=== PATIENT | male | born 1960 | race Caucasian/White ===

== ENCOUNTER 2016-10-26 | Emergency (ER) | payer OTHER | END 2016-10-26 10:50 | disposition left against medical advice (07) | DX: Z53.21 Procedure and treatment not carried out due to patient leaving prior to being seen by health care provider (principal) ==

== ENCOUNTER 2017-03-10 12:53 | Outpatient (CLI) | payer OTHER ==
--- NOTE | 2017-03-10 14:22 | Ultrasound Report ---
LIMITED ABDOMINAL ULTRASOUND: 03/10/2017 CLINICAL INDICATION: Hernia. TECHNIQUE: Real-time scanning was performed with retail sales representative static images obtained. FINDINGS: Ultrasound of the anterior abdominal wall was performed. A small hernia is seen approximat tisha 4 cm above the umbilicus in the midline, with a neck measuring 10 mm. No recurrent hernia is seen in the previous hernia repair incision in the left upper quadrant, and no hernia is identified at th e site of pain identified by the patient in the left subcostal region. IMPRESSION: AN 1 CM MIDLINE ANTERIOR ABDOMINAL WALL HERNIA, CONTAINING FAT, APPROXIMATELY 4 CM SUPER IOR TO THE UMBILICUS. NO EVIDENT RECURRENT HERNIA AT THE SITE OF PREVIOUS HERNIA REPAIR, AND NO HERNI A IS IDENTIFIED AT THE SITE OF PAIN IDENTIFIED BY THE PATIENT IN THE LEFT UPPER QUADRANT. JOB #: [id number] EXT JOB #:
== END 2017-03-10 12:54 | disposition home or self-care (01) ==
LOC: DI 12:53
PROVIDERS: ATTEND Nurse Practitioner Family
DX: K43.9 Ventral hernia without obstruction or gangrene (principal)
CPT/HCPCS: 76705

== ENCOUNTER 2017-05-12 10:36 | Outpatient (CLI) | payer OTHER ==
--- NOTE | 2017-05-13 08:46 | Ultrasound Report ---
LEFT LOWER EXTREMITY VENOUS ULTRASOUND: 05/12/2017 CLINICAL HISTORY: Patient had left lower extremity pain. TECHNIQUE: Examination was done with a [employer] color Doppler scanning system using high-frequency tr ansducers. FINDINGS: Left lower extremity venous ultrasound demonstrates normal compressibility and phasic colo r flow in all the veins visualized including left common femoral vein, profunda femoral vein, superfi cial femoral vein, popliteal vein, and calf veins. Also, right common femoral vein showed normal com pressibility and phasic color flow. The calf veins in the peroneal and posterior tibial venae comita ntes were more dilated than usually noted. This may indicate deep vein varicosities. IMPRESSION: 1. EXAMINATION IS NEGATIVE FOR DEEP VEIN THROMBOSIS. 2. THE LEFT POSTERIOR TIBIAL AND PERONEAL VENAE COMITANTES ARE MORE DILATED THAN USUALLY NOTED. THI S SUGGESTS DEEP VEIN VARICOSITIES. JOB #: [id number] EXT JOB #:[id number]
== END 2017-05-12 10:37 | disposition home or self-care (01) ==
LOC: DI 10:36
PROVIDERS: ATTEND Nurse Practitioner Family
DX: M79.605 Pain in left leg (principal); R60.0 Localized edema

== ENCOUNTER 2017-12-07 08:00 | Outpatient (CLI) | payer OTHER | END 2017-12-07 08:01 | disposition home or self-care (01) | LOC: LAB.R 08:00 → LAB.F 08:01 | PROVIDERS: ATTEND Nurse Practitioner Family | DX: M79.652 Pain in left thigh (principal) | CPT/HCPCS: 36415; 85379 ==

== ENCOUNTER 2017-12-09 13:50 | Outpatient (CLI) | payer OTHER ==
--- NOTE | 2017-12-09 16:22 | Ultrasound Report ---
BILATERAL LOWER EXTREMITY VENOUS DUPLEX: 12/09/2017 CLINICAL INDICATION: Left thigh pain, positive D-dimer. COMPARISON: 05/12/2017. TECHNIQUE: Real-time sonographic vascular imaging was performed by the television program director through the bilateral lower extremities utilizing both color flow and Doppler spectral analysis. Multiple claim service representative static images were saved for review. FINDINGS: A bilateral lower extremity venous sonogram is performed revealing the common femoral, superficial femoral, profunda femoris, and popliteal veins to be adequately visualized without intraluminal defects. There is normal venous compression, augmentation, phasicity, and spontaneity of venous flow. In the calf, the visualized more cephalad portions of posterior tibial and peroneal veins are grossly compressible, without filling defects. IMPRESSION: NO EVIDENCE OF DEEP VENOUS THROMBOSIS. TD: 12/09/2017 16:21
== END 2017-12-09 13:51 | disposition home or self-care (01) ==
LOC: DI 13:50
PROVIDERS: ATTEND Nurse Practitioner Family
DX: M79.652 Pain in left thigh (principal)
CPT/HCPCS: 93970

== ENCOUNTER 2017-12-26 15:42 | Outpatient (CLI) | payer OTHER ==
--- NOTE | 2017-12-26 17:48 | MRI Report ---
EXAM: MRI CERVICAL SPINE WITHOUT CONTRAST EXAM DATE: 12/26/2017 04:22 PM. CLINICAL HISTORY: NECK PAIN. COMPARISONS: None. TECHNIQUE: Multiplanar, multisequence T1-weighted and fluid-sensitive sequences of the cervical spine without contrast. Other: None. FINDINGS: Neurologic Structures: The visualized posterior fossa structures are unremarkable. No signal abnormal ity in the visualized spinal cord. Alignment: Grade 1 anterolisthesis at C4-C5 by approximately 2 mm. Grade 1 retrolisthesis of C5-C6 by approximately 1.5 mm. Grade 1 anterolisthesis at C6-C7 by approximately 1.5 mm. Bone Marrow: No gross fractures or bone lesions. Marrow edema at the left C3-C4, left C4-C5, and righ t C5-C6 facet joints which is most likely degenerative. Interspace Levels/Facets: The craniocervical junction is unremarkable. C1-C2: Unremarkable. C2-C3: There is bony fusion of the facet joints. No stenoses. C3-C4: Moderate to severe left and mild right facet arthropathy. Bilateral uncovertebral joint osteop hytes. Severe left and mild right foraminal stenoses. C4-C5: Small disk bulge. Bilateral uncovertebral joint osteophytes. Ttju-vq-aaboivbd right and severe left facet arthropathy. Mild canal stenosis. Severe foraminal stenoses. C5-C6: Moderate to severe disk space narrowing. Marrow edema within most of the C5 vertebral body and the superior half of the C6 vertebral body. Small disk bulge/osteophyte complex and bilateral uncove rtebral joint osteophytes. Mild left and moderate right facet arthropathy. Mild to moderate canal shad nosis. No cord impingement. Severe left and right foraminal stenoses. C6-C7: Small disk bulge. Right-sided uncovertebral joint osteophytes. Moderate left and severe right facet arthropathy. Mild canal stenosis. Moderate foraminal stenoses. C7-T1: Bony fusion of the facet joints. No stenoses. Musculature: Normal. No edema or fatty atrophy. Other: The paravertebral and prevertebral soft tissues are normal. IMPRESSION: 1. Grade 1 anterolisthesis at C4-C5 and C6-C7. Grade 1 retrolisthesis at C5-C6. 2. Multilevel degenerative disk changes, osteophytosis, and facet arthropathy. Some of the more signi ficant levels are at C3-C4, C4-C5, C5-C6. 3. Severe left and moderate right foraminal stenoses at C3-C4. 4. Small disk bulge at C4-C5. Mild canal and severe foraminal stenoses. 5. Small disk bulge/osteophyte complex at C5-C6. Jowl-sp-dzvhimri canal stenosis. Severe foraminal st enoses. 6. Small disk bulge at C6-C7. Mild canal and moderate foraminal stenoses. 7. Bony fusion (ankylosis) at the C2-C3 and C7-T1 facet joints which may be degenerative or inflammat ory in etiology. [facility] Referring Provider Line: [phone] SITE ID: [id number]
--- NOTE | 2017-12-27 03:57 | MRI Report ---
EXAM: MRI LUMBAR SPINE WITHOUT CONTRAST EXAM DATE: 12/26/2017 04:45 PM. CLINICAL HISTORY: Back pain, urinary incontinence. History of prior surgery at L4-L5. COMPARISON: Lumbar spine MRI from 07/16/[address] of the abdomen and pelvis from 07/20/2013. TECHNIQUE: Multiplanar, multisequence T1-weighted and fluid-sensitive sequences of the lumbar spine f rom T12 to S1 without contrast. Other: None. FINDINGS: Spinal Cord: The conus terminates at T12-L1. The conus medullaris and cauda equina are unremarkable. Alignment: Retrolisthesis of L2-L3, L3-L4, and L4-L5 is stable. Bone Marrow: Five paf-nyh-mvxxbuc lumbar vertebral bodies are confirmed on the CT. Mild type I Modic endplate changes are again noted anteriorly at L2-L3. There are new mild type I Modic endplate change s anteriorly at L1-L2, L3-L4, and L5-S1. Disk Levels/Facets: T12-L1: On sagittal images, a right paracentral protrusion is noted without significant spinal canal or foraminal stenosis. These findings are stable. L1-L2: On sagittal images, the spinal canal and foramina are patent. L2-L3: A mild disk bulge is present without spinal canal or foraminal stenosis. These findings are st able. L3-L4: A disk bulge with facet arthropathy and ligamentum flavum infolding result in mild spinal chela l stenosis. There is mild bilateral foraminal narrowing. These findings are stable. L4-L5: Old left laminectomy changes are demonstrated. There is a persistent disk bulge with a superim posed central protrusion and annular fissure. This results in mild spinal canal stenosis with narrowi ng of the lateral recesses without definite impingement of the descending L5 nerve root. There is mil d bilateral foraminal narrowing. These findings are stable. L5-S1: A disk bulge with bilateral facet arthropathy results in mild bilateral foraminal narrowing wi thout spinal canal stenosis. These findings are stable. Musculature: There is mild diffuse fatty atrophy of the posterior paraspinal muscles without intramus cular edema. Other: The partially visualized retroperitoneum is unremarkable. IMPRESSION: 1. Normal conus medullaris and cauda equina. 2. Similar appearance of multilevel degenerative changes without evidence of worsening spinal canal o r foraminal stenosis compared to the lumbar spine MRI from 07/16/2011. 3. New mild type I Modic endplate changes are present anteriorly at L1-L2, L3-L4, and L5-S1. Comment: The following findings are so common in adults without low back pain that while we report th eir presence, they must be interpreted with caution and in the context of the clinical situation. (Re honey Cifuentes et al, Spine 2001) Prevalence of findings in patients without low back pain: Disk degeneration (any evidence): 92% Disk desiccation/T2 signal loss: 83% Disk height loss: 56% Disk bulge: 64% Disk protrusion: 32% Annular tear/high intensity zone: 38% [facility] Referring Provider Line: [phone] SITE ID: [id number]
== END 2017-12-26 15:43 | disposition home or self-care (01) ==
LOC: DI 15:42
PROVIDERS: ATTEND Acupuncturist
DX: M50.31 Other cervical disc degeneration, high cervical region (principal); M47.892 Other spondylosis, cervical region; M43.12 Spondylolisthesis, cervical region; M43.22 Fusion of spine, cervical region; M51.36 Other intervertebral disc degeneration, lumbar region; M47.896 Other spondylosis, lumbar region
CPT/HCPCS: 72141; 72148

== ENCOUNTER 2018-05-23 16:10 | Outpatient (CLI) | payer OTHER ==
--- NOTE | 2018-05-24 10:56 | XRAY Report ---
Procedure Date: 05/23/2018 Accession Number: [id number] / [id number] Procedure: XRS - Wrist 4 View LT CPT Code: FULL RESULT: EXAM: Wrist 4 View LT, Hand 3 View LT DATE: 05/23/2018 4:28 PM CLINICAL HISTORY: PAIN IN LEFT HAND COMPARISON: None. TECHNIQUE: 3 views of the left hand and 4 views of the left wrist. FINDINGS: Left hand: Bones: Normal. No fractures or bone lesions. Joints: Normal. No subluxations. Soft Tissues: There is a 4 mm long thin radiopaque foreign body in the medial soft tissues of the second finger, level of middle phalanx. Left wrist: No fracture or dislocation. Mild degenerative changes about the first carpometacarpal joint. IMPRESSION: Foreign body in the left index finger as described. No fracture or dislocation. [facility]
--- NOTE | 2018-05-24 10:56 | XRAY Report ---
Procedure Date: 05/23/2018 Accession Number: [id number] / [id number] Procedure: XRS - Hand 3 View LT CPT Code: FULL RESULT: EXAM: Wrist 4 View LT, Hand 3 View LT DATE: 05/23/2018 4:28 PM CLINICAL HISTORY: PAIN IN LEFT HAND COMPARISON: None. TECHNIQUE: 3 views of the left hand and 4 views of the left wrist. FINDINGS: Left hand: Bones: Normal. No fractures or bone lesions. Joints: Normal. No subluxations. Soft Tissues: There is a 4 mm long thin radiopaque foreign body in the medial soft tissues of the second finger, level of middle phalanx. Left wrist: No fracture or dislocation. Mild degenerative changes about the first carpometacarpal joint. IMPRESSION: Foreign body in the left index finger as described. No fracture or dislocation. [facility]
== END 2018-05-23 16:11 | disposition home or self-care (01) ==
LOC: DI.S 16:10
PROVIDERS: ATTEND Nurse Practitioner Family
DX: M79.5 Residual foreign body in soft tissue (principal)

== ENCOUNTER 2018-10-30 08:00 | Outpatient (CLI) | payer OTHER ==
[2018-10-30 19:00] LABS: BASOPHILS % (AUTO) 0.4 %; EOSINOPHILS % (AUTO) 0.3 %; HGB - HEMOGLOBIN 16.1 g/dL (14.0-18.0); LYMPHOCYTES # (AUTO) 1.7 10^3/uL (1.5-3.5); LYMPHOCYTES % (AUTO) 15.6 %; MEAN CORPUSCULAR HEMOGLOBIN 30.4 pg (27.0-31.0); MEAN CORPUSCULAR HGB CONC 32.4 g/dL (32.0-36.0); MEAN CORPUSCULAR VOLUME 93.8 fL (80.0-94.0); MEAN PLATELET VOLUME 10.8 fL (7.4-11.4); MONOCYTES # (AUTO) 0.8 10^3/uL (0.0-1.0); MONOCYTES % (AUTO) 6.8 %; NEUTROPHILS # (AUTO) 8.6 10^3/uL (1.5-6.6); NEUTROPHILS % (AUTO) 76.9 %; PLT - PLATELET COUNT 310 10^3/uL (130-450); WHITE BLOOD COUNT 11.1 x10^3/uL (4.8-10.8)
[2018-10-30 19:20] LABS: ALBUMIN 4.4 g/dL (3.2-5.5); ALBUMIN/GLOBULIN RATIO 1.6 (1.0-2.2); ALKALINE PHOSPHATASE 64 IU/L (42-121); ALT ALANINE AMINOTRANSFERASE 14 IU/L (10-60); AST ASPARTATE AMINOTRANSFERASE 15 IU/L (10-42); BUN - BLOOD UREA NITROGEN 8 mg/dL (6-20); CALCIUM 9.4 mg/dL (8.5-10.3); CARBON DIOXIDE - CO2 27 mmol/L (21-32); CHLORIDE 107 mmol/L (101-111); CHOL/HDL RATIO 3.9 (<5.0); CHOLESTEROL 184 mg/dL; CREATININE 0.9 mg/dL (0.6-1.2); GFR - MDRD 87 (>89); GLUCOSE 140 mg/dL (70-100); HDL CHOLESTEROL 47 mg/dL; LDL CHOLESTEROL,CALCULATED 122 mg/dL; LDL/HDL RATIO 2.6 (<3.6); SODIUM 142 mmol/L (135-145); TOTAL PROTEIN 7.2 g/dL (6.7-8.2); VLDL CHOLESTEROL 15 mg/dL
[2018-10-30 20:13] LABS: DIFFERENTIAL COMMENT MANUAL=AUTO DIFF; PLATELET ESTIMATE, MANUAL NORMAL (130-450,000) (NORMAL); PLATELET MORPHOLOGY NORMAL APPEARANCE (NORMAL); RBC MORPHOLOGY (MULTIPLE) NORMAL APPEARANCE (NORMAL)
== END 2018-10-30 23:59 | disposition home or self-care (01) ==
LOC: LAB.S 08:00
PROVIDERS: ATTEND Nurse Practitioner Family
DX: I10 Essential (primary) hypertension (principal); Z13.220 Encounter for screening for lipoid disorders; Z12.5 Encounter for screening for malignant neoplasm of prostate
CPT/HCPCS: 36415; 80053; 80061; 83721; 84153; 84443; 85025

== ENCOUNTER 2019-05-25 16:54 | Outpatient (CLI) | payer OTHER ==
--- NOTE | 2019-05-29 17:31 | MRI Report ---
Reason: RADICULOPATHY Procedure Date: 05/25/2019 Accession Number: [id number] / [id number] Procedure: MRI - Cervical Spine W/O CPT Code: FULL RESULT: EXAM: MRI CERVICAL SPINE WITHOUT CONTRAST EXAM DATE: 05/25/2019 05:45 PM. CLINICAL HISTORY: Left arm pain and numbness. COMPARISONS: 12/26/2017 cervical spine MRI. TECHNIQUE: Multiplanar, multisequence T1-weighted and fluid-sensitive sequences of the cervical spine without contrast. Other: None. FINDINGS: Neurologic Structures: The visualized posterior fossa structures are unremarkable. No signal abnormality in the visualized spinal cord. Alignment: 1.5 mm anterolisthesis of C4 on C5, unchanged. 1.5 mm anterolisthesis of C6 on C7, also unchanged. Bone Marrow: No fractures. No osseous lesions. There is extensive Modic type I endplate degenerative changes asymmetric to the left surrounding the C3-C4 disk space. Modic type I endplate degenerative changes also surround the C5-C6 disk space. Endplate degenerative changes have progressed from the prior examination. Progressive, now severe left C2-C3 facet arthropathy with extensive surrounding subchondral marrow edema and pericapsular edema. There is also subchondral marrow edema at the left C4-C5 facet and right C5-C6 and C6-C7 facets. Interspace Levels/Facets: C1-C2: Unremarkable. C2-C3: No disk bulge or protrusion. No central canal or foraminal stenosis. Fusion of the right facet. C3-C4: A broad-based disk-osteophyte complex asymmetric to the left foraminal region with severe left facet arthropathy results in circumferential effacement of the CSF with slight flattening of the ventral cord and narrowing of the canal to 7 mm in AP diameter. There is severe left foraminal stenosis. Mild right foraminal stenosis. Findings have progressed from the prior exam. C4-C5: Shallow broad-based disk osteophyte complex effaces the ventral CSF without deforming the cord. Severe left and mild right facet arthropathy. Severe bilateral foraminal stenosis is unchanged. C5-C6: Moderate intervertebral disk height loss. Broad-based disk osteophyte complex and moderate right facet arthropathy results in effacement of the ventral CSF and flattening of the cord, as well as severe bilateral foraminal stenosis. C6-C7: Shallow broad-based disk bulge partially effaces the ventral CSF without deforming the cord. Severe right and moderate left facet arthropathy. Moderate bilateral foraminal stenosis. Unchanged. C7-T1: Unremarkable. Musculature: Normal. No edema or fatty atrophy. Other: The paravertebral and prevertebral soft tissues are normal. IMPRESSION: 1. At C3-C4, a progressive broad-based disk osteophyte complex asymmetric to the left foraminal region with severe left facet arthropathy now results in moderate central canal and severe left foraminal stenosis. 2. At C2-C3, there is new extensive subchondral marrow edema and pericapsular edema surrounding the left facet. 3. At C4-C5 and C5-C6, broad-based disk osteophyte complexes with bilateral facet arthropathy results in mild-moderate central canal stenosis and severe bilateral foraminal stenosis, unchanged. 4. C6-C7, mild central canal and moderate bilateral foraminal stenosis secondary to a shallow broad-based disk bulge and moderate to severe facet arthropathy is unchanged. 5. Progressive degenerative endplate edema surrounding the C3-C4 and C5-C6 disk spaces. There is also subchondral marrow edema surrounding the left C2-C3 and C4-C5 and right C5-C6 and C6-C7 facets. [facility]
== END 2019-05-25 16:55 | disposition home or self-care (01) ==
LOC: DI 16:54
PROVIDERS: ATTEND Acupuncturist
DX: M54.12 Radiculopathy, cervical region (principal); M50.31 Other cervical disc degeneration, high cervical region; M48.02 Spinal stenosis, cervical region; M47.812 Spondylosis without myelopathy or radiculopathy, cervical region; R60.0 Localized edema
CPT/HCPCS: 72141

== ENCOUNTER 2019-11-28 17:02 | Outpatient (CLI) | payer OTHER ==
[2019-11-28] MEDS ORDERED: GADOBUTROL 10 MMOL/10 ML VIAL ONE (17:14)
[2019-11-28] MEDS ORDERED: GADOBUTROL 10 MMOL/10 ML VIAL IVP ONE (17:45)
--- NOTE | 2019-11-29 02:08 | MRI Report ---
Reason: RADICULOPATHY LUMBOSACRAL REGION Procedure Date: 11/28/2019 Accession Number: [id number] / [id number] Procedure: MRI - Lumbar Spine W/WO CPT Code: Final Report FULL RESULT: EXAM: MRI LUMBAR SPINE WITHOUT AND WITH CONTRAST EXAM DATE: 11/28/2019 05:45 PM. CLINICAL HISTORY: RADICULOPATHY LUMBOSACRAL REGION. COMPARISONS: LUMBAR SPINE W/O 12/26/2017 4:25 PM. TECHNIQUE: Multiplanar, multisequence T1-weighted and fluid-sensitive sequences of the lumbar spine from T12 to S1 before and after administration of intravenous contrast. Other: None. IV contrast: GADAVIST 8 mL. FINDINGS: Neurologic Structures: The conus terminates at T12-L1. The conus medullaris and cauda equina are unremarkable. Alignment: Slight 2-3 mm degenerative retrolisthesis at L3-L4 and L4-L5 and slight anterolisthesis at L5-S1 is unchanged. Bone Marrow: Five nwg-rul-gmgdoah lumbar vertebral bodies are assumed. No gross fractures or bone lesions. No bone marrow replacement or abnormal enhancement. Disk Levels/Facets: T12-L1: Mild disk narrowing and desiccation present in a small 1-2 mm right paracentral disk protrusion is unchanged. No evidence of nerve root compression. No canal or foraminal stenosis. L1-L2: Mild disk narrowing and desiccation. There is a minimal disk bulge. No canal or foraminal stenosis. No change. L2-L3: There is mild anterior spurring and mild to moderate disk narrowing and desiccation. There is mild disk bulge and bilateral facet hypertrophy. No significant canal or foraminal stenosis. No change. L3-L4: There is mild anterior endplate spurring and mild to moderate disk narrowing and desiccation. There is a generalized disk bulge and bilateral facet hypertrophy with ligamentum flavum thickening. This results in mild central canal and bilateral foraminal narrowing. No significant change compared to previous MRI. L4-L5: Left-sided laminectomy defect is again demonstrated. There is mild to moderate disk narrowing desiccation. There is a mild disk bulge with a superimposed broad-based central disk protrusion effacing the ventral thecal sac. There is mild bilateral facet hypertrophy and right ligamentum flavum thickening. This results in mild central canal and bilateral subarticular recess narrowing. The neural foramen are also mildly narrowed bilaterally. No definite nerve root impingement. Findings at this level appear stable compared to 12/26/2017. L5-S1: There is a slight anterolisthesis. There is a mild disk bulge with superimposed 4 mm left foraminal disk protrusion. This narrows the left neural foramen and abuts the exiting left L5 nerve root (sagittal image 3, series 301). This finding is new compared to the previous MRI. Correlate with left L5 radiculopathy. No significant central canal stenosis. Right neural foramen appears adequate. Facet joints are mildly hypertrophied. Spinal Canal: No enhancing masses within the spinal canal. No epidural abscess. Musculature: Normal. No edema, abnormal enhancement, or fatty atrophy. Other: The visualized retroperitoneum is unremarkable. IMPRESSION: 1. At the L5-S1 level, a 4 mm left foraminal disk protrusion narrows the neural foramen and abuts the exiting left L5 nerve root. This finding is new compared to 12/26/2017. Please correlate with possible left L5 radiculopathy. There is no significant central canal or right foraminal stenosis. 2. The remaining lumbar levels appear unchanged compared to previous MRI on 12/26/2017. 3. At L4-L5, there is a left-sided laminectomy defect. There is a disk bulge with superimposed broad-based central disk protrusion effacing the ventral thecal sac. This results in mild central canal narrowing and mild bilateral subarticular recess and neural foramen narrowing. No definite nerve root compression. Findings at this level appear stable. 4. At L3-L4, mild spondylosis and disk bulging results in mild central canal and bilateral foraminal narrowing. No evidence of nerve root impingement. 5. Multilevel degenerative change is associated with a slight retrolisthesis at L3-L4 and L4-L5 and slight anterolisthesis at L5-S1. This is unchanged compared to the previous MRI. Comment: The following findings are so common in adults without low back pain that while we report their presence, they must be interpreted with caution and in the context of the clinical situation. (Reference Lulak et al, Spine 2001) Prevalence of findings in patients without low back pain: Disk degeneration (any evidence): 92% Disk desiccation/T2 signal loss: 83% Disk height loss: 56% Disk bulge: 64% Disk protrusion: 32% Annular tear/high intensity zone: 38% [facility]
== END 2019-11-28 17:03 | disposition home or self-care (01) ==
LOC: DI 17:02
PROVIDERS: ATTEND Acupuncturist
DX: M51.36 Other intervertebral disc degeneration, lumbar region (principal); M47.816 Spondylosis without myelopathy or radiculopathy, lumbar region; M43.16 Spondylolisthesis, lumbar region
CPT/HCPCS: 36415; 72158; A9585; 82565

== ENCOUNTER 2020-05-13 17:34 | Outpatient (CLI) | payer OTHER ==
--- NOTE | 2020-05-13 18:10 | XRAY Report ---
PROCEDURE: Foot 3 View RT INDICATIONS: RT FOOT PAIN TECHNIQUE: 3 views of the foot were acquired. COMPARISON: None FINDINGS: Bones: No acute fractures or dislocations. No suspicious bony lesions. Severe joint space narrowin g and periarticular osteophyte formation at the first metatarsophalangeal joint. Subchondral lucencie s within the proximal phalanx and first metatarsal head adjacent to the first metatarsophalangeal joanne nt. Deformity of the second metatarsal head. Soft tissues: No tibiotalar joint effusion. Achilles tendon appears normal. IMPRESSION: 1. Severe first metatarsophalangeal joint osteoarthritis. 2. Possible chronic posttraumatic fracture deformity of the second metatarsal head. This could be fur ther assessed with CT, if clinically indicated. Reviewed by: Lisa Ramirez MD on 05/13/2020 5:08 PM [facility] Approved by: Lisa Ramirez MD on 05/13/2020 5:08 PM [facility] Station ID: [id number]
== END 2020-05-13 17:35 | disposition home or self-care (01) ==
LOC: DI.S 17:34
PROVIDERS: ATTEND Podiatrist
DX: M19.071 Primary osteoarthritis, right ankle and foot (principal)

== ENCOUNTER 2020-07-11 17:33 | Outpatient (CLI) | payer OTHER ==
--- NOTE | 2020-07-11 21:21 | CT Report ---
PROCEDURE: LOWER EXTREMITY WO - RT INDICATIONS: PAIN IN 1ST AND 2ND METARSALS - RT FOOT TECHNIQUE: Noncontrast 3 mm axial sections acquired of the right foot, with coronal and sagittal reformats. COMPARISON: Right foot radiographs dated 05/13/2020 FINDINGS: Image quality: Excellent. Bones: There is no acute fracture or dislocation. Severe degenerative changes are seen at the first metatarsophalangeal joint with full-thickness joint space narrowing, subchondral cystic changes, and marginal osteophyte formation. Degenerative changes also seen at the metatarsal sesamoid articulation s. Flattening of the second metatarsal head may be secondary to prior trauma or osteonecrosis with se condary degenerative changes. Mild scattered degenerative changes are seen in the interphalangeal joanne nts of the toes. 2 small os peronei are noted. A small posterior calcaneal spur is present. Soft tissues: No acute soft tissue edema is identified. The articular cartilages, ligaments, and ten dons are not well evaluated with CT. There is mild fatty infiltration of the intrinsic foot musculatu re. IMPRESSION: 1. Severe degenerative changes at the first metatarsophalangeal joint and the metatarsal sesamoid ar ticulations. 2. Chronic flattening of the second metatarsal head may be secondary to prior osteonecrosis or traum a, with secondary degenerative changes. Reviewed by: Uche Myers MD on 07/11/2020 9:19 PM PDT Approved by: Uche Myers MD on 07/11/2020 9:19 PM PDT Station ID: [id number]
== END 2020-07-11 17:34 | disposition home or self-care (01) ==
LOC: DI 17:33
PROVIDERS: ATTEND Podiatrist
DX: M19.071 Primary osteoarthritis, right ankle and foot (principal)

== ENCOUNTER 2020-11-10 07:05 | Outpatient (CLI) | payer OTHER ==
[2020-11-10 15:32] LABS: BASOPHILS % (AUTO) 0.3 %; EOSINOPHILS # (AUTO) 0.1 10^3/uL (0.0-0.7); EOSINOPHILS % (AUTO) 0.9 %; HGB - HEMOGLOBIN 16.4 g/dL (14.0-18.0); LYMPHOCYTES # (AUTO) 1.5 10^3/uL (1.5-3.5); LYMPHOCYTES % (AUTO) 15.6 %; MEAN CORPUSCULAR HEMOGLOBIN 30.5 pg (27.0-31.0); MEAN CORPUSCULAR HGB CONC 33.3 g/dL (32.0-36.0); MEAN CORPUSCULAR VOLUME 91.6 fL (80.0-94.0); MEAN PLATELET VOLUME 11.6 fL (7.4-11.4); MONOCYTES # (AUTO) 0.8 10^3/uL (0.0-1.0); MONOCYTES % (AUTO) 8.3 %; NEUTROPHILS # (AUTO) 7.3 10^3/uL (1.5-6.6); NEUTROPHILS % (AUTO) 74.5 %; PLT - PLATELET COUNT 294 10^3/uL (130-450); RED BLOOD COUNT 5.37 10^6/uL (4.70-6.10); RED CELL DISTRIBUTION WIDTH 14.1 % (12.0-15.0); WHITE BLOOD COUNT 9.8 x10^3/uL (4.8-10.8)
[2020-11-10 16:05] LABS: PSA FREE 0.111 ng/mL (0.16-2.81)
[2020-11-10 16:07] LABS: PSA TOTAL 0.189 ng/mL (0.000-2.000)
[2020-11-10 16:09] LABS: ALBUMIN 4.3 g/dL (3.2-5.5); ALBUMIN/GLOBULIN RATIO 1.4 (1.0-2.2); ALKALINE PHOSPHATASE 60 IU/L (42-121); ALT ALANINE AMINOTRANSFERASE 16 IU/L (10-60); AST ASPARTATE AMINOTRANSFERASE 14 IU/L (10-42); BUN - BLOOD UREA NITROGEN 11 mg/dL (6-20); CALCIUM 9.2 mg/dL (8.5-10.3); CARBON DIOXIDE - CO2 26 mmol/L (21-32); CHLORIDE 107 mmol/L (101-111); CHOL/HDL RATIO 5.8 (<5.0); CHOLESTEROL 286 mg/dL; GLUCOSE 145 mg/dL (70-100); HDL CHOLESTEROL 49 mg/dL; LDL CHOLESTEROL,CALCULATED 211 mg/dL; LDL/HDL RATIO 4.3 (<3.6); SODIUM 139 mmol/L (135-145); TOTAL PROTEIN 7.3 g/dL (6.7-8.2); VLDL CHOLESTEROL 26 mg/dL
== END 2020-11-10 07:06 | disposition home or self-care (01) ==
LOC: LAB.S 07:05
PROVIDERS: ATTEND Registered Nurse
DX: I10 Essential (primary) hypertension (principal); F17.200 Nicotine dependence, unspecified, uncomplicated
CPT/HCPCS: 36415; 80053; 80061; 83721; 84153; 84154; 84443; 85025

== ENCOUNTER 2021-04-13 09:17 | Outpatient (CLI) | payer OTHER ==
--- NOTE | 2021-04-13 10:54 | Ultrasound Report ---
PROCEDURE: Abdomen Limited INDICATIONS: LEFT UPPER QUAD HERNIA TECHNIQUE: Real-time focused scanning was performed of the abdomen, with image documentation. COMPARISON: No recent prior ultrasound or CT scanning.. FINDINGS: Scanning was performed in the area of current clinical concern, left upper quadrant in the area of tenderness and prior incision. No hernia. This found. IMPRESSION: No left upper quadrant hernia found, in the area of pain and prior incision. Reviewed by: Alvaro Martinez MD on 04/13/2021 10:53 AM PDT Approved by: Alvaro Martinez MD on 04/13/2021 10:53 AM PDT Station ID: [id number]
== END 2021-04-13 09:18 | disposition home or self-care (01) ==
LOC: DI 09:17
PROVIDERS: ATTEND Physician Assistant Medical
DX: K43.2 Incisional hernia without obstruction or gangrene (principal)

== ENCOUNTER 2021-05-21 16:49 | Outpatient (CLI) | payer OTHER | END 2021-05-21 16:50 | disposition home or self-care (01) | LOC: COV 16:49 | PROVIDERS: ATTEND Surgery | DX: Z01.812 Encounter for preprocedural laboratory examination (principal); K43.2 Incisional hernia without obstruction or gangrene; Z20.822 Contact with and (suspected) exposure to COVID-19 ==

== ENCOUNTER 2021-05-25 06:11 | Day surgery (SDC) | payer OTHER ==
[2021-05-25] MEDS ORDERED: ceFAZolin 2 GM/50 ML 2 GM/50 ML BAG IV ONE (06:20)
[2021-05-25] MEDS ORDERED: LACTATED RINGERS 1,000 ML IV ONE ×3 (06:22→10:02)
[2021-05-25] MEDS ORDERED: BUPIVACAINE 0.5%-EPI 1:200000 PF 30 ML VIAL ONE (07:16)
[2021-05-25] MEDS ORDERED: LIDOCAINE 1% 50 ML MDV ONE (07:16)
[2021-05-25] MEDS ORDERED: ceFAZolin 1 GM VIAL ONE (07:17)
[2021-05-25] MEDS ORDERED: ATROPINE ABBOJECT 1 MG/10 ML SYRINGE IVP PRN (07:20)
[2021-05-25] MEDS ORDERED: NALOXONE 0.4 MG/ML VIAL IVP PRN (07:20)
[2021-05-25] MEDS ORDERED: MORPHINE 2 MG/ML CARPUJECT IVP PRN (07:20)
[2021-05-25] MEDS ORDERED: HYDROmorphone 0.5 MG/0.5 ML SYRINGE IVP PRN (07:20)
[2021-05-25] MEDS ORDERED: ONDANSETRON 4 MG/2 ML VIAL IVP PRN ×2 (07:20→08:51)
[2021-05-25] MEDS ORDERED: ePHEDrine 50 MG/ML VIAL IVP PRN (07:20)
--- NOTE | 2021-05-25 07:20 | ANESTHESIA ---
Pre-Anesthesia VS, & Labs - Diagnosis recurrent incisional hernia - Procedure incisional hernia repair Vital Signs: Temp Pulse Resp BP Pulse Ox 36.6 C 74 16 127/83 H 96 05/25/21 06:24 05/25/21 06:24 05/25/21 06:24 05/25/21 06:24 05/25/21 06:24 Height: 81 ft Weight (kg): 6 kg Body Mass Index: 0.0 BMI Classification: Underweight - NPO >8 hours - Lab Results Lab results reviewed: Yes Home Medications and Allergies Home Medications: Ambulatory Orders Losartan Potassium 25 mg PO DAILY 05/18/21 Quetiapine Fumarate [Seroquel] 100 mg PO QPM 05/18/21 Rosuvastatin Calcium [Crestor] 40 mg PO QPM 05/18/21 Morphine ER [Morphine Sulfate ER] 15 mg PO TID 03/22/14 oxyCODONE [Roxicodone] 5 mg PO Q4H 03/22/14 Losartan Potassium 25 mg PO DAILY 05/18/21 Quetiapine Fumarate [Seroquel] 100 mg PO QPM 05/18/21 Rosuvastatin Calcium [Crestor] 40 mg PO QPM 05/18/21 Allergies/Adverse Reactions: Allergies Allergy/AdvReac Type Severity Reaction Status Date / Time aspirin Allergy Anaphylaxis Verified 05/18/21 11:30 Anes History & Medical History - Anesthetic History Anesthesia Complications: reports: No previous complications Family history of Anesthesia Complications: Denies Family history of Malignant Hyperthermia: Denies - Medical History Cardiovascular: reports: Hypertension, High cholesterol Pulmonary: reports: None Gastrointestinal: reports: GERD Urinary: reports: None Musculoskeletal: reports: Chronic back pain Endocrine/Autoimmune: reports: None Skin: reports: None Smoking Status: Current every day smoker - Surgical History General: reports: Other Neurologic: reports: Other Orthopedic: reports: Spine surgery, Other Exam General: Alert, Oriented x3, Cooperative Dental: WNL, Dentures full Upper, Dentures full Lower Mouth Openin Fingerbreadth Neck Mobility: Normal Mallampati classification: II Thyromental Distance: 4-6 cm Respiratory: Lungs clear, Normal breath sounds Cardiovascular: Regular rate Neurological: Normal speech Mental/Cognitive Status: Alert/Oriented X3, Normal for patient Cognitive Status: Within normal limits Plan Anesthesia Type: General Consent for Procedure(s) Verified and Reviewed: Yes Code Status: Attempt Resuscitation ASA classification: 2-Mild systemic disease Is this case an emergency?: No
[2021-05-25] MEDS ORDERED: MIDAZOLAM 2 MG/2 ML VIAL ONE (07:56)
[2021-05-25] MEDS ORDERED: fentaNYL 100 MCG/2 ML VIAL ONE ×2 (07:56→09:06)
[2021-05-25] MEDS ORDERED: LACTATED RINGERS 1,000 ML IV SCH (08:00)
[2021-05-25] MEDS ORDERED: BUPIVACAINE 0.5%-EPI 1:200000 PF 30 ML VIAL SUBQ ONE (08:11)
[2021-05-25] MEDS ORDERED: LIDOCAINE 1% 50 ML MDV SUBQ ONE (08:11)
[2021-05-25] MEDS ORDERED: ceFAZolin 1 GM VIAL IR ONE (08:13)
--- NOTE | 2021-05-25 08:44 | OPERATIVE REPORT ---
Operative Report - General Procedure Date: 05/25/21 Planned Procedure: Repair of recurrent left upper quadrant hernia Pre-Op Diagnosis: Recurrent right upper quadrant hernia Procedure Performed: Left upper quadrant exploration with placement of mesh patch Post Op Diagnosis: Left upper quadrant pain with muscular weakness - Procedure Note Primary Surgeon: Clifford Anesthesia Provider: RUDOLPH Alberto Anesthesia Technique: General ET tube Pathology: None Estimated Blood Loss (mL): 5 Findings: Left upper quadrant weakness with no discreet hernia Existing repair in place without recurrence. Internal abdominal wall palpated with no defects Complications: None apparent - Other Other Information/Narrative: After obtaining informed consent, the patient is brought to the operating room a nd placed in the supine position on the operating table. Following successful induction of general endotracheal anesthesia, appropriate padding of all bony prominences, and placement of appropriate monitors, the abdomen was prepped and draped in the standard surgical fashion. A timeout was held per scope protocol. All elements of the surgical safety checklist were followed before, during, and after the procedure. We began the procedure by infiltrating a mixture of local anesthetics at the site of the existing incision.This incision was reopened and carried through the skin and subcutaneous tissue. The fascia was identified and there were no visible defects. The existing repair was also identified and without interruption. Because the patient had had a significant bulge and pain in the side I elected to open the abdominal wall in search for A\ny defects internally that were undetectable by other means.A full examination of the internal abdominal wall was undertaken using the surgeon's finger. No defects were appreciated. There are areas of weakness at the left rib margin but no discrete defects or openings within the abdominal wall were appreciated.Due to the feeling of weakness in the patient's abdomen and a desire to address his symptomatology, I elected to place a Ventralex ST hernia patch. This 6 cm patch was dipped in Ancef solution and deployed into the defect. The leaflets were sewn to the fascia with Vicryl suture. The fascia was then reapproximated with Vicryl suture. Subcutaneous tissue was closed with Vicryl suture and Monocryl was placed in the skin. All sponge, needle, and instrument counts were correct at the conclusion of the case. The patient was allowed awaken from anesthesia without difficulty and taken to the post anesthesia care unit in good condition.
[2021-05-25] MEDS ORDERED: LIDOCAINE-MPF 2% 5 ML VIAL ONE (08:49)
[2021-05-25] MEDS ORDERED: DEXAMETHASONE 4 MG/ML VIAL ONE (08:49)
[2021-05-25] MEDS ORDERED: ONDANSETRON 4 MG/2 ML VIAL ONE (08:49)
[2021-05-25] MEDS ORDERED: PROPOFOL 200 MG/20 ML VIAL IVP ONE (08:49)
[2021-05-25] MEDS ORDERED: ROCURONIUM 50 MG/5 ML VIAL ONE (08:49)
[2021-05-25] MEDS ORDERED: ACETAMINOPHEN 325 MG TABLET PO PRN (08:51)
[2021-05-25] MEDS ORDERED: oxyCODONE 5 MG TABLET PO PRN (08:51)
[2021-05-25] MEDS: fentaNYL 100 MCG/2 ML VIAL IVP PRN ×2 (09:05→09:12)
[2021-05-25] MEDS ORDERED: ePHEDrine 50 MG/ML VIAL IVP ONE (09:09)
[2021-05-25] MEDS ORDERED: SUGAMMADEX 200 MG/2 ML VIAL IVP ONE (09:14)
[2021-05-25] MEDS ORDERED: HYDROmorphone 0.5 MG/0.5 ML SYRINGE ONE (09:23)
[2021-05-25] MEDS ORDERED: oxyCODONE 5 MG TABLET ONE (10:11)
[2021-05-25 10:29] VITALS: BP 120/77
--- NOTE | 2021-05-25 10:58 | ANESTHESIA POST OP EVALUATION ---
Anesthesia Post Eval - Post Anesthesia Eval Vitals: Last Vital Signs Temp 36.1 C L 05/25/21 10:29 Pulse 64 05/25/21 10:29 Resp 16 05/25/21 10:29 BP 120/77 05/25/21 10:29 Pulse Ox 93 05/25/21 10:29 CV Function Including HR & BP: Stable Pain Control: Satisfactory Nausea & Vomiting: Negative Mental Status: Baseline Respiratory Status: Airway Patent Hydration Status: Satisfactory Anesthesia Complications: None
== END 2021-05-25 06:12 | disposition home or self-care (01) ==
LOC: SDS 06:11
PROVIDERS: ATTEND Surgery
PROC: 0WJF0ZZ Inspection of Abdominal Wall, Open Approach (ICD-10-PCS; 2021-05-25)
PROC: 0WUF0JZ Supplement Abdominal Wall with Synthetic Substitute, Open Approach (ICD-10-PCS; principal; 2021-05-25 07:30)
DX: R10.12 Left upper quadrant pain (principal); M62.81 Muscle weakness (generalized); F17.200 Nicotine dependence, unspecified, uncomplicated
CPT/HCPCS: 0437T; 49999; 93005; A9270; C1781; J0690; J1170; J7120

== ENCOUNTER 2022-02-26 18:43 | Outpatient (CLI) | payer OTHER ==
--- NOTE | 2022-03-01 02:10 | CT Report ---
PROCEDURE: Low Dose Lung Cancer Screen INDICATIONS: SMOKER TECHNIQUE: Noncontrast low-dose images were acquired from the pulmonary apices to the posterior costophrenic ang les. Multiplanar MIP reformats were then acquired. For radiation dose reduction, the following was used: automated exposure control, adjustment of mA and/or kV according to patient size. COMPARISON: None. FINDINGS: Image quality: Diagnostic given low radiation dose. Lungs and pleura: There are mild paraseptal emphysematous changes in the lung apices. No suspicious pulmonary nodules or mass lesions. No acute consolidation. No pleural effusions or pneumothorax. Trac hea and central airways appear patent. Mediastinum: Heart size is normal. No pericardial effusion. There is moderate coronary arterial vas cular calcification. No mediastinal adenopathy by size criteria. Thoracic aorta and central pulmonar y arteries are normal in size. Esophagus is normal in caliber. No hiatal hernia. Bones and chest wall: No suspicious bony lesions. No vertebral body compression fractures. No axil ashlie or supraclavicular adenopathy by size criteria. Abdomen: Visualized upper abdomen solid organs and bowel loops appear normal in the absence of contr ast. IMPRESSION: 1. No suspicious pulmonary nodules or mass lesions. Lung RADS 1: Negative. Recommend continued annual screening CT. Reviewed by: Bj Beckford MD on 03/01/2022 2:09 AM PDT Approved by: Bj Beckford MD on 03/01/2022 2:09 AM PDT Station ID: [id number]
== END 2022-02-26 18:44 | disposition home or self-care (01) ==
LOC: DI 18:43
PROVIDERS: ATTEND Registered Nurse
DX: Z12.2 Encounter for screening for malignant neoplasm of respiratory organs (principal); F17.210 Nicotine dependence, cigarettes, uncomplicated

== ENCOUNTER 2022-03-24 13:04 | Outpatient (CLI) | payer OTHER | END 2022-03-24 13:05 | disposition home or self-care (01) | LOC: RT 13:04 | PROVIDERS: ATTEND Registered Nurse | DX: F17.200 Nicotine dependence, unspecified, uncomplicated (principal) | CPT/HCPCS: 94010; 94727 ==

== ENCOUNTER 2023-01-07 08:13 | Outpatient (CLI) | payer OTHER ==
[2023-01-07 14:39] LABS: BASOPHILS % (AUTO) 0.5 %; EOSINOPHILS # (AUTO) 0.1 10^3/uL (0.0-0.7); EOSINOPHILS % (AUTO) 1.5 %; HCT - HEMATOCRIT 53.6 % (42.0-52.0); HGB - HEMOGLOBIN 17.1 g/dL (14.0-18.0); LYMPHOCYTES # (AUTO) 1.7 10^3/uL (1.5-3.5); LYMPHOCYTES % (AUTO) 19.6 %; MEAN CORPUSCULAR HEMOGLOBIN 29.9 pg (27.0-31.0); MEAN CORPUSCULAR HGB CONC 31.9 g/dL (32.0-36.0); MEAN CORPUSCULAR VOLUME 93.9 fL (80.0-94.0); MEAN PLATELET VOLUME 12.1 fL (7.4-11.4); MONOCYTES # (AUTO) 0.9 10^3/uL (0.0-1.0); MONOCYTES % (AUTO) 10.1 %; NEUTROPHILS # (AUTO) 5.8 10^3/uL (1.5-6.6); NEUTROPHILS % (AUTO) 67.9 %; PLT - PLATELET COUNT 321 10^3/uL (130-450); RED BLOOD COUNT 5.71 10^6/uL (4.70-6.10); RED CELL DISTRIBUTION WIDTH 14.5 % (12.0-15.0); WHITE BLOOD COUNT 8.5 x10^3/uL (4.8-10.8)
[2023-01-07 15:35] LABS: ALBUMIN/GLOBULIN RATIO 1.1 (1.0-2.2); ALKALINE PHOSPHATASE 70 IU/L (42-121); ALT ALANINE AMINOTRANSFERASE 12 IU/L (10-60); AST ASPARTATE AMINOTRANSFERASE 16 IU/L (10-42); BILIRUBIN,TOTAL 0.7 mg/dL (0.2-1.0); BUN - BLOOD UREA NITROGEN 13 mg/dL (6-20); CARBON DIOXIDE - CO2 28 mmol/L (21-32); CHLORIDE 104 mmol/L (101-111); CHOL/HDL RATIO 4.8 (<5.0); CHOLESTEROL 202 mg/dL; GFR - MDRD 76 (>89); GLUCOSE 133 mg/dL (70-100); HDL CHOLESTEROL 42 mg/dL; LDL CHOLESTEROL,CALCULATED 130 mg/dL; LDL/HDL RATIO 3.1 (<3.6); POTASSIUM 4.1 mmol/L (3.5-5.0); SODIUM 137 mmol/L (135-145); TOTAL PROTEIN 7.5 g/dL (6.7-8.2); TRIGLYCERIDES 149 mg/dL; VLDL CHOLESTEROL 30 mg/dL
[2023-01-07 15:54] LABS: THYROID STIMULATING HORMONE 2.11 uIU/mL (0.34-5.60)
== END 2023-01-07 08:14 | disposition home or self-care (01) ==
LOC: LAB.S 08:13
PROVIDERS: ATTEND Registered Nurse
DX: E78.5 Hyperlipidemia, unspecified (principal); Z13.228 Encounter for screening for other metabolic disorders; Z12.5 Encounter for screening for malignant neoplasm of prostate; Z13.29 Encounter for screening for other suspected endocrine disorder; Z13.0 Encounter for screening for diseases of the blood and blood-forming organs and certain disorders involving the immune mechanism
CPT/HCPCS: 36415; 80053; 80061; 83721; 84153; 84443; 85025

== ENCOUNTER 2023-08-12 08:00 | Outpatient (CLI) | payer OTHER ==
--- NOTE | 2023-08-12 17:54 | XRAY Report ---
PROCEDURE: Knee 4 View LT INDICATIONS: LEFT KNEE PAIN TECHNIQUE: 4 views of the left knee(s) were acquired. COMPARISON: None. FINDINGS: Bones: No fractures or dislocations. No suspicious bony lesions. Degenerative changes of the righ t knee visualized on the AP view. Severe tricompartmental osteoarthrosis of the left knee with near c omplete joint space loss of the medial femorotibial compartment on weightbearing views. Soft tissues: Small left knee joint effusion. No suspicious soft tissue calcifications or masses. IMPRESSION: No acute bony abnormality. Severe tricompartmental osteoarthrosis of the left knee. Small left knee j oint effusion. Reviewed by: Sherif Toribio MD on 08/12/2023 5:52 PM PDT Approved by: Sherif Toribio MD on 08/12/2023 5:52 PM PDT Station ID: [id number]
== END 2023-08-12 23:59 | disposition home or self-care (01) ==
LOC: DI.WOS 08:00
PROVIDERS: ATTEND Physician Assistant Surgical
DX: M17.12 Unilateral primary osteoarthritis, left knee (principal); M25.462 Effusion, left knee

== ENCOUNTER 2023-09-01 09:05 | Outpatient (CLI) | payer OTHER ==
--- NOTE | 2023-09-01 15:11 | CT Report ---
PROCEDURE: Low Dose Lung Cancer Screen INDICATIONS: TOBACCO DEPENDENCE TECHNIQUE: A CT scan of the chest was performed. Intravenous contrast media was not administered. Images were re corded and evaluated at appropriate window settings. Reformats: axial MIP of the chest, coronal and s agittal. For radiation dose reduction, the following was used: automated exposure control, adjustment of mA and/or kV according to patient size. COMPARISON: CT chest, 02/26/2021. FINDINGS: Image quality: Excellent. Lungs and pleura: No pleural effusions. No pneumothorax. No suspicious pulmonary nodules which requi re follow up. Mediastinum: Heart size is normal. No pericardial effusion. Moderate coronary atherosclerosis. No lar ge vessel abnormality. No mediastinal adenopathy by size criteria. Small hiatal hernia. Chest wall and lower neck: Thyroid is unremarkable. No axillary or supraclavicular adenopathy by size . Bones: No aggressive osseous abnormality. Upper Abdomen: Unremarkable. IMPRESSION: 1. No suspicious lung nodules. Lung RADS: 1 - Negative. Recommendation: Continue annual screening in 12 Months with LDCT 2. Moderate coronary artery stenosis. Reviewed by: Brett Rios MD on 09/01/2023 3:10 PM PST Approved by: Brett Rios MD on 09/01/2023 3:10 PM PST Station ID: [id number]
== END 2023-09-01 09:06 | disposition home or self-care (01) ==
LOC: DI 09:05
PROVIDERS: ATTEND Registered Nurse
DX: Z12.2 Encounter for screening for malignant neoplasm of respiratory organs (principal); I25.10 Atherosclerotic heart disease of native coronary artery without angina pectoris; F17.210 Nicotine dependence, cigarettes, uncomplicated

== ENCOUNTER 2024-03-29 10:25 | Outpatient (CLI) | payer OTHER ==
[2024-03-29 14:21] LABS: BASOPHILS % (AUTO) 0.3 %; EOSINOPHILS # (AUTO) 0.1 10^3/uL (0.0-0.7); HCT - HEMATOCRIT 48.6 % (42.0-52.0); HGB - HEMOGLOBIN 16.2 g/dL (14.0-18.0); LYMPHOCYTES # (AUTO) 2.4 10^3/uL (1.5-3.5); LYMPHOCYTES % (AUTO) 21.1 %; MEAN CORPUSCULAR HEMOGLOBIN 30.5 pg (27.0-31.0); MEAN CORPUSCULAR HGB CONC 33.3 g/dL (32.0-36.0); MEAN CORPUSCULAR VOLUME 91.5 fL (80.0-94.0); MEAN PLATELET VOLUME 12.3 fL (7.4-11.4); MONOCYTES # (AUTO) 1.2 10^3/uL (0.0-1.0); MONOCYTES % (AUTO) 10.7 %; NEUTROPHILS # (AUTO) 7.7 10^3/uL (1.5-6.6); NEUTROPHILS % (AUTO) 66.5 %; PLT - PLATELET COUNT 303 10^3/uL (130-450); RED BLOOD COUNT 5.31 10^6/uL (4.70-6.10); RED CELL DISTRIBUTION WIDTH 14.4 % (12.0-15.0); WHITE BLOOD COUNT 11.6 x10^3/uL (4.8-10.8)
[2024-03-29 15:14] LABS: ALBUMIN 4.3 g/dL (3.2-5.5); ALBUMIN/GLOBULIN RATIO 1.7 (1.0-2.2); ALKALINE PHOSPHATASE 57 IU/L (42-121); ALT ALANINE AMINOTRANSFERASE 11 IU/L (10-60); AST ASPARTATE AMINOTRANSFERASE 10 IU/L (10-42); BILIRUBIN,TOTAL 0.8 mg/dL (0.2-1.0); BUN - BLOOD UREA NITROGEN 19 mg/dL (6-20); CALCIUM 9.4 mg/dL (8.5-10.3); CARBON DIOXIDE - CO2 26 mmol/L (21-32); CHLORIDE 104 mmol/L (101-111); CHOL/HDL RATIO 4.3 (<5.0); CHOLESTEROL 184 mg/dL; CREATININE 1.1 mg/dL (0.6-1.3); GFR - MDRD 68 (>89); GLUCOSE 106 mg/dL (74-104); HDL CHOLESTEROL 43 mg/dL; LDL CHOLESTEROL,CALCULATED 116 mg/dL; LDL/HDL RATIO 2.7 (<3.6); POTASSIUM 4.2 mmol/L (3.5-4.5); SODIUM 136 mmol/L (135-145); TOTAL PROTEIN 6.8 g/dL (6.4-8.9); TRIGLYCERIDES 124 mg/dL (48-352); VLDL CHOLESTEROL 25 mg/dL
[2024-03-29 15:24] LABS: THYROID STIMULATING HORMONE 5.43 uIU/mL (0.34-5.60)
== END 2024-03-29 10:26 | disposition home or self-care (01) ==
LOC: LAB.S 10:25
PROVIDERS: ATTEND Registered Nurse
DX: Z12.5 Encounter for screening for malignant neoplasm of prostate (principal); Z13.228 Encounter for screening for other metabolic disorders; Z13.220 Encounter for screening for lipoid disorders; Z13.29 Encounter for screening for other suspected endocrine disorder; Z13.0 Encounter for screening for diseases of the blood and blood-forming organs and certain disorders involving the immune mechanism
CPT/HCPCS: 36415; 80053; 80061; 83721; 84153; 84443; 85025